=== PATIENT | female | born 1960 | race Caucasian/White ===

== ENCOUNTER 2024-04-01 09:56 | Observation (INO) ==
--- NOTE | 2024-04-01 10:03 | EKG ---
Test Reason : UNABLE TO MOVE EXTREMITIES Blood Pressure : */* mmHG Vent. Rate : 86 BPM Atrial Rate : 86 BPM P-R Int : 168 ms QRS Dur : 86 ms QT Int : 392 ms P-R-T Axes : 63 11 49 degrees QTc Int : 469 ms Sinus rhythm with premature supraventricular complexes Nonspecific ST abnormality Abnormal ECG No previous ECGs available Confirmed by Kojo Cope MD ([id number]) on 04/01/2024 10:26:03 AM Referred By: Confirmed By: Kojo Cope MD
[2024-04-01] MEDS: ASPIRIN 81 MG CHEWTAB PO STA (10:10)
[2024-04-01] MEDS: NS 1,000 ML IV 1,000 ML IV SCH (10:10)
[2024-04-01 10:15] LABS: BASOPHILS % (AUTO) 0.5 % (0.2-1.0); EOSINOPHILS # (AUTO) 0.1 x10^3/uL (0.0-0.2); EOSINOPHILS % (AUTO) 1.3 % (0.9-2.9); HEMATOCRIT 44.7 % (36.0-47.0); LYMPHOCYTES # (AUTO) 2.3 X10^3/uL (1.3-2.9); LYMPHOCYTES % (AUTO) 28.9 % (21.0-51.0); MEAN CORPUSCULAR HEMOGLOBIN 30.2 pg (27.0-34.0); MEAN CORPUSCULAR HGB CONC 33.6 g/dL (33.0-35.0); MEAN CORPUSCULAR VOLUME 89.8 fL (80.0-100.0); MEAN PLATELET VOLUME 8.7 fL (7.4-11.0); MONOCYTES # (AUTO) 0.4 x10^3/uL (0.3-0.8); MONOCYTES % (AUTO) 5.7 % (0.0-13.0); NEUTROPHILS % (AUTO) 63.6 % (42.0-75.0); PLATELET COUNT 203 X10^3/uL (150.0-450.0); RED BLOOD COUNT 4.98 X10^6/uL (3.5-5.4); RED CELL DISTRIBUTION WIDTH 13.3 % (11.6-16.5); WHITE BLOOD COUNT 7.8 X10^3/uL (3.6-10.0)
--- NOTE | 2024-04-01 10:17 | DR.WEAKNES ---
HPI Time Seen Time Seen by Provider: 04/01/24 10:16 Complaints Chief Complaint Doctors Comments: Patient was riding with her from an appointment in [facility] which she near the abnormal area she began to get some right arm pain and according to her she just went limp could not m ove any of her extremities and was not as conversant. When she got to the ER she was unable to move her extremities.responding to voice commands. She was able to say that she was having some right arm pain when I did my initial evaluation. She does have a history of TIAs so we started her on the cardiac and stroke protocol. Timing Symptom Onset: Known Context Stroke Symptoms: Acute confusion PMH Travel Risk Coronavirus risk:travel/contact w/high risk person: No Has patient experienced Coronavirus symptoms: No ROS Review of Systems Constitutional: Weakness and Other Eyes: No Symptoms Reported ENTM: No Symptoms Reported Respiratoy: No Symptoms Reported Cardiovascular: No Symptoms Reported Gastrointestinal/Abdominal: No Symptoms Reported Genitourinary: No Symptoms Reported Neurological: Paresthesia, Weakness and Other (Obtunded) Musculoskeletal: Muscle Stiffness Integumentary: No Symptoms Reported Hematologic/Lymphatic: No Symptoms Reported Endocrine: No Symptoms Reported Psychiatric: Other (conversion type reaction) PE Vital Signs Vitals: Vital Signs Temperature 96.1 F Pulse Rate 61 Pulse Rate 61 Pulse Rate 60 Pulse Rate 60 Pulse Rate 61 Pulse Rate 61 Pulse Rate 62 Pulse Rate 62 Pulse Rate 64 Pulse Rate 66 Pulse Rate 69 Pulse Rate 63 Pulse Rate 62 Pulse Rate 66 Pulse Rate 69 Pulse Rate 71 Pulse Rate 69 Pulse Rate 66 Pulse Rate 67 Pulse Rate 65 Pulse Rate 65 Pulse Rate 79 Pulse Rate 75 Pulse Rate 76 Pulse Rate 70 Pulse Rate 73 Pulse Rate 78 Pulse Rate 77 Pulse Rate 81 Pulse Rate 88 Respiratory Rate 20 Respiratory Rate 21 Respiratory Rate 17 Respiratory Rate 17 Respiratory Rate 20 Respiratory Rate 18 Respiratory Rate 15 Respiratory Rate 17 Respiratory Rate 20 Respiratory Rate 14 Respiratory Rate 19 Respiratory Rate 19 Respiratory Rate 14 Respiratory Rate 13 Respiratory Rate 15 Respiratory Rate 17 Respiratory Rate 22 Respiratory Rate 17 Respiratory Rate 13 Respiratory Rate 19 Respiratory Rate 18 Respiratory Rate 17 Respiratory Rate 24 Respiratory Rate 13 Respiratory Rate 17 Respiratory Rate 20 Respiratory Rate 16 Respiratory Rate 18 Blood Pressure 143/56 Blood Pressure 143/56 Blood Pressure 143/56 Blood Pressure 158/69 Blood Pressure 167/73 Blood Pressure 175/77 Blood Pressure 162/73 Blood Pressure 162/73 Blood Pressure 162/73 Blood Pressure 141/67 Blood Pressure 153/69 Blood Pressure 174/78 Blood Pressure 177/79 Blood Pressure 184/91 O2 Sat by Pulse Oximetry 100 O2 Sat by Pulse Oximetry 100 O2 Sat by Pulse Oximetry 100 O2 Sat by Pulse Oximetry 100 O2 Sat by Pulse Oximetry 100 O2 Sat by Pulse Oximetry 100 O2 Sat by Pulse Oximetry 100 O2 Sat by Pulse Oximetry 100 O2 Sat by Pulse Oximetry 100 O2 Sat by Pulse Oximetry 100 O2 Sat by Pulse Oximetry 100 O2 Sat by Pulse Oximetry 98 O2 Sat by Pulse Oximetry 99 O2 Sat by Pulse Oximetry 99 O2 Sat by Pulse Oximetry 100 O2 Sat by Pulse Oximetry 100 O2 Sat by Pulse Oximetry 99 O2 Sat by Pulse Oximetry 99 O2 Sat by Pulse Oximetry 100 O2 Sat by Pulse Oximetry 100 O2 Sat by Pulse Oximetry 100 O2 Sat by Pulse Oximetry 100 O2 Sat by Pulse Oximetry 100 General Limitations: Altered Mental Status and Physical Limitation (could not move extremities) Head Head Exam: Normal Inspection, Atraumatic and Normocephalic Eyes Eye exam: Normal Appearance, PERRL and EOMI Eyelids: Normal Inspection: Bilateral Pupils: Regular, Round: Bilateral ENT ENT Exam: Normal Exam Mouth Exam: Normal Inspection Throat Exam: Normal Inspection Chest Chest Inspection: Normal Inspection and Symmetric Chest Wall Rise Respiratory Respiratory Exam: Normal Lung Sounds Bilat Respiratory Exam: Bilateral: Clear to Auscultation Cardiovascular Cardiovascular Exam: Regular Rate Abdominal Exam Abdominal Exam: Normal Inspection, Normal Bowel Sounds and Soft Extremities Extremities Exam: Normal Inspection Back Back Exam: Normal Inspection Neurologic Neurological Exam: Other (obtunded) Patient Oriented To: Person Speech: Expressive Aphasia Cranial Nerve Exam: EOM Function (II, III, IV, ): Normal Motor Strength - LUE: 2/5 Motor Strength - RUE: 2/5 Motor Strength - LLE: 2/5 Motor Strength - RLE: 2/5 Psychiatric Psychiatric Exam: Depressed and Flat Affect Skin Skin Exam: Warm, Dry and Intact MDM Differential Diagnosis Differential Diagnosis: CVA, Electrolyte Disorder, TIA and Other (conversion reaction) COURSE Treatment Treatment: Patient had a stroke alert protocol instituted and we were able to speak to a the neurologist and he stated that the ED CT of the scan of the brain look normal the patient was able to respond by moving out extremities slightly when he asked him to do things he thought this may be some type of conversion reaction or some type of hypertensive encephalopathy he suggested we do an MRI of the brain and MRA of the brain could not have any contrast related IV or evaluation of the brain. She did have an MRI of the brain that showed no intra cranial abnormality and she had an MRA that showed little narrowing of the right APOLONIA and shows some other abnormality that may represent some congenital deformity. We did get the patient excepted for an observation and Dr. Coyle was the doctor that excepted this patient for observation. This patient has a potassium of 3.3 so we are going to put some potassium in a bag of 10 mill equivalents in a bag and run at 100 cc an hour while she is in the hospital. ROR Labs Reviewed Laboratory Results Reviewed?: Yes 04/01/24 10:05 04/01/24 10:05 Laboratory: WBC 7.8 X10^3/uL (3.6-10.0) 04/01/24 10:05 RBC 4.98 X10^6/uL (3.5-5.4) 04/01/24 10:05 Hgb 15.0 g/dL (12.0-16.0) 04/01/24 10:05 Hct 44.7 % (36.0-47.0) 04/01/24 10:05 MCV 89.8 fL (80.0-100.0) 04/01/24 10:05 MCH 30.2 pg (27.0-34.0) 04/01/24 10:05 MCHC 33.6 g/dL (33.0-35.0) 04/01/24 10:05 RDW 13.3 % (11.6-16.5) 04/01/24 10:05 Plt Count 203 X10^3/uL (150.0-450.0) 04/01/24 10:05 MPV 8.7 fL (7.4-11.0) 04/01/24 10:05 Neut % (Auto) 63.6 % (42.0-75.0) 04/01/24 10:05 Lymph % (Auto) 28.9 % (21.0-51.0) 04/01/24 10:05 [place] % (Auto) 5.7 % (0.0-13.0) 04/01/24 10:05 Eos % (Auto) 1.3 % (0.9-2.9) 04/01/24 10:05 Baso % (Auto) 0.5 % (0.2-1.0) 04/01/24 10:05 Neut # (Auto) 5.0 x10^3/uL (2.2-4.8) H 04/01/24 10:05 Lymph # (Auto) 2.3 X10^3/uL (1.3-2.9) 04/01/24 10:05 [place] # (Auto) 0.4 x10^3/uL (0.3-0.8) 04/01/24 10:05 Eos # (Auto) 0.1 x10^3/uL (0.0-0.2) 04/01/24 10:05 Baso # (Auto) 0.0 X10^3/uL (0.0-0.1) 04/01/24 10:05 Absolute Nucleated RBC 0.0 /100WBC 04/01/24 10:05 PT 14.3 SECONDS (11.8-14.3) 04/01/24 10:05 INR Target Range - 04/01/24 10:05 INR 1.13 (0.8-1.3) 04/01/24 10:05 APTT 27.6 SECONDS (22.9-36.5) 04/01/24 10:05 PTT Comment - 04/01/24 10:05 Fibrinogen 346 mg/dL (239-489) 04/01/24 10:05 Sodium 140 mmol/L (136-145) 04/01/24 10:05 Corrected Sodium 141 mmol/L (136-145) 04/01/24 10:05 Potassium 3.3 mmol/L (3.5-5.1) L 04/01/24 10:05 Chloride 101 mmol/L (98-107) 04/01/24 10:05 Carbon Dioxide 29.2 mmol/L (21-32) 04/01/24 10:05 BUN 17 mg/dL (7-18) 04/01/24 10:05 Creatinine 0.90 mg/dL (0.55-1.02) 04/01/24 10:05 Est GFR (MDRD) Af Amer > 60 (>60) 04/01/24 10:05 Est GFR (MDRD) Non-Af > 60 (>60) 04/01/24 10:05 Glucose 130 mg/dL (65-99) H 04/01/24 10:05 Calcium 9.5 mg/dL (8.5-10.1) 04/01/24 10:05 Corrected Calcium TNP 04/01/24 10:05 Total Bilirubin 0.50 mg/dL (0.2-1.0) 04/01/24 10:05 AST 26 Units/L (15-37) 04/01/24 10:05 ALT 41 Units/L (12-78) 04/01/24 10:05 Alkaline Phosphatase 112 Units/L (46-116) 04/01/24 10:05 Creatine Kinase 322 Units/L (26-192) H 04/01/24 10:05 Troponin I High Sens 5.4 ng/L (4.0-60.0) 04/01/24 10:05 B-Natriuretic Peptide 30.2 pg/mL (0-79) 04/01/24 10:05 Total Protein 8.5 g/dL (6.4-8.2) H 04/01/24 10:05 Albumin 4.5 g/dL (3.4-5.0) 04/01/24 10:05 Globulin 4.0 g/dL (2.5-4.5) 04/01/24 10:05 Albumin/Globulin Ratio 1.1 Ratio (1.1-2.1) 04/01/24 10:05 Triglycerides 83 mg/dL (0-150) 04/01/24 10:05 Cholesterol 186 mg/dL (0-200) 04/01/24 10:05 LDL Cholesterol, Calc 110 mg/dL (0-100) H 04/01/24 10:05 HDL Cholesterol 59 mg/dL (40-60) 04/01/24 10:05 Cholesterol/HDL Ratio 3.2 (0.0-5.0) 04/01/24 10:05 Specimen Type Clean catch urine 04/01/24 12:58 Urine Color Yellow (YELLOW) 04/01/24 12:58 Urine Appearance Clear (CLEAR) 04/01/24 12:58 Urine pH 6.5 (5.0 - 8.0) 04/01/24 12:58 Ur Specific [place] 1.010 (1.000-1.030) 04/01/24 12:58 Urine Protein 2+ (NEGATIVE) 04/01/24 12:58 Urine Glucose (UA) Negative (NEGATIVE) 04/01/24 12:58 Urine Ketones Negative (NEGATIVE) 04/01/24 12:58 Urine Blood Negative (NEGATIVE) 04/01/24 12:58 Urine Nitrite Negative (NEGATIVE) 04/01/24 12:58 Urine Bilirubin Negative (NEGATIVE) 04/01/24 12:58 Urine Urobilinogen Normal (NORMAL) 04/01/24 12:58 Ur Leukocyte Esterase Negative (NEGATIVE) 04/01/24 12:58 Urine RBC None seen /HPF (0-3) 04/01/24 12:58 Urine WBC 0-2 /HPF (0-5) 04/01/24 12:58 Ur Squamous Epith Cells Few /HPF (NEGATIVE) 04/01/24 12:58 Urine Bacteria Negative /HPF (NEGATIVE) 04/01/24 12:58 Ur Culture Indicated? 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 Pt educated and given instructions on all concerns. Plan of Treatment: Continue with present treatment and follow up plan. Pt is to keep follow up appointment as instructed and take medications as ordered. Orders to Discharge Patient Discharge Orders: Transfer (Routine); Ordered 04/01/24 Ordered By: Bashir Hooker Follow ups/Referrals Follow ups/Referrals: Mario Tijerina [Primary Care Provider] - 3 days Instructions Stand Alone Forms: Post Hospital Follow Up Care
[2024-04-01 10:18] VITALS: BMI 35.6
[2024-04-01 10:23] LABS: INR 1.13 (0.8-1.3)
--- NOTE | 2024-04-01 10:30 | CT ---
EXAMINATION: BRAIN W/O CON HISTORY: UNABLE TO MOVE EXTREMEMTIES; COMPARISON: None. TECHNIQUE: Contiguous noncontrast axial CT images of the brain. Images are reviewed in the axial imaging plane with reformatted sagittal and coronal images.The above CT scan was done with automated exposure contr ol and the mA and kV was adjusted to obtain quality images according to patient size. FINDINGS: No evidence of acute intracranial hemorrhage, mass effect, or midline shift. Ventricles normal size and shape. Calvarium appears intact. IMPRESSION: No acute intracranial process seen. Consider follow-up MRI of the brain if this is of continued clin ical concern. THIS IS AN ELECTRONICALLY VERIFIED FINAL REPORT 04/01/2024 10:26 AM - Electronically signed by Naila Lares MD
[2024-04-01 10:36] LABS: ALANINE AMINOTRANSFERASE 41 Units/L (12-78); ALBUMIN 4.5 g/dL (3.4-5.0); ALKALINE PHOSPHATASE 112 Units/L (46-116); ASPARTATE AMINO TRANSFERASE 26 Units/L (15-37); BLOOD UREA NITROGEN 17 mg/dL (7-18); CALCIUM 9.5 mg/dL (8.5-10.1); CARBON DIOXIDE 29.2 mmol/L (21-32); CHLORIDE 101 mmol/L (98-107); CHOL/HDL RATIO 3.2 (0.0-5.0); CHOLESTEROL 186 mg/dL (0-200); COR NA(FOR HYPERGLY) 141 mmol/L (136-145); CREATINE KINASE 322 Units/L (26-192); GLUCOSE 130 mg/dL (65-99); HDL CHOLESTEROL 59 mg/dL (40-60); POTASSIUM 3.3 mmol/L (3.5-5.1); SODIUM 140 mmol/L (136-145); TOTAL PROTEIN 8.5 g/dL (6.4-8.2); TRIGLYCERIDES 83 mg/dL (0-150); eGFR NON BLACK RACES > 60 (>60)
--- NOTE | 2024-04-01 10:50 | RAD ---
EXAM: CHEST, 1 VIEW HISTORY: UNABLE TO MOVE EXTREMEMTIES; COMPARISON: No relevant prior studies were available for comparison at the time of interpretation. TECHNIQUE: CHEST, 1 VIEW FINDINGS: Chest: Lines and tubes: Cardiac leads overlie the chest. Mediastinum: Borderline cardiomegaly. Pulmonary vessels: There is pulmonary vascular congestion. Lung bell: No suspicious airspace opacity. Pleura: No effusion. No pneumothorax. Bones and soft tissues: No acute osseous or soft tissue abnormality. IMPRESSION: 1. Findings suggest heart failure THIS IS AN ELECTRONICALLY VERIFIED FINAL REPORT 04/01/2024 10:46 AM - Electronically signed by Ney Pino MD
--- NOTE | 2024-04-01 12:48 | MRI ---
EXAM: BRAIN W/O CON HISTORY: POSSIBLE STROKE/ FAST BRAIN RAN DUE TO PATIENT HAVING CLAUSTROPHOBIA/ AND IN PAIN; COMPARISON: None. TECHNIQUE: Multiplaner, multisequence MRI of the head is performed without IV contrast. FINDINGS: There is no evidence of restricted diffusion to indicate a recent infarction. No suprasellar asymmetry is identified. Cerebellar tonsils are normal in position. Normal signal an d morphology of the corpus callosum. The major flow voids of the anterior and posterior intracranial circulation are adequately maintained on the T2 weighted series. Internal auditory canal landmarks are symmetric. Sinuses are predominan tly clear aside from mild ethmoidal mucosal thickening. The mastoid air cells are predominantly xenia r. There is no intracranial hemorrhage or extra-axial fluid collection. The ventricular size is nor mal. No age advanced degenerative white matter signal changes are demonstrated. No susceptibility a rtifact or hemosiderin deposition identified. Cortical brain volume is age-appropriate. IMPRESSION: No acute intracranial abnormalities. Specifically, no evidence of restricted diffusion to indicate a recent infarction. THIS IS AN ELECTRONICALLY VERIFIED FINAL REPORT 04/01/2024 12:45 PM - Electronically signed by Gamaliel Wong MD
[2024-04-01 13:08] LABS: BILIRUBIN,URINE NEGATIVE (NEGATIVE); BLOOD/HEMOGLOBIN,URINE NEGATIVE (NEGATIVE); GLUCOSE, URINE NEGATIVE (NEGATIVE); KETONES,URINE NEGATIVE (NEGATIVE); LEUKOCYTE ESTERASE ,URINE NEGATIVE (NEGATIVE); NITRITES,URINE NEGATIVE (NEGATIVE); PH,URINE 6.5 (5.0 - 8.0); PROTEIN,URINE 2+ (NEGATIVE); UROBILINOGEN,URINE NORMAL (NORMAL)
--- NOTE | 2024-04-01 13:20 | MRI ---
EXAM: MRA HEAD W/O CON HISTORY: AMS, hypertensive encephalopathy; COMPARISON: None. TECHNIQUE: 3D [id number] MRA of the head with 2D slab reconstruction FINDINGS: With respect to the posterior circulation, the left vertebral artery appears dominant and there is li mited flow related signal identified in the expected distribution of the right vertebral artery. Dmitri w related signal is maintained through the basilar artery terminus. Bilateral anterior inferior cere bellar arteries, superior cerebellar arteries and posterior cerebral arteries maintain normal overall flow related signal. There is a hypoplastic right P1 segment. Robust flow related signal is mainta ined through the bilateral posterior communicating arteries and primarily supplies the bilateral post erior cerebral artery segments via persistent type [employer] origin. Normal flow related signal is m aintained through the ICA terminus. Bilateral middle cerebral artery branches and anterior cerebral artery branches are patent; the proximal right A1 segment reveals focal narrowing just beyond the clinton gin. Otherwise, there is no loss of signal to indicate an occluded segments or flow-limiting high-gr carlos enrique stenosis. IMPRESSION: No large vessel occlusion identified with respect to the anterior and posterior intracranial circulat ion Short-segment narrowing of the proximal right A1 segment (focal high-grade stenosis considered) Dominant left vertebral artery and persistent type [employer] origins with respect to the posterior ci rculation. 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 THIS IS AN ELECTRONICALLY VERIFIED FINAL REPORT 04/01/2024 1:16 PM - Electronically signed by Gamaliel Wong MD
[2024-04-01 13:40] LABS: APPEARANCE,URINE CLEAR (CLEAR); COLOR,URINE YELLOW (YELLOW); RBC,URINE NONE SEEN /HPF (0-3)
[2024-04-01 13:41] LABS: BACTERIA,URINE NEGATIVE /HPF (NEGATIVE); SQUAMOUS EPITHELIAL CELL,UR FEW /HPF (NEGATIVE)
[2024-04-01] MEDS: NS 1,000 ML IV 1,000 ML ONE (17:54)
[2024-04-01] MEDS: ASPIRIN 81 MG CHEWTAB ONE (17:55)
[2024-04-01] MEDS: OMNIPAQUE 350 mg/mL 100 mL BTL 100 ML ONE (17:55)
[2024-04-01] MEDS: NS 1,000 ML IV 1,000 ML with POTASSIUM CHLORIDE INJ 10 MEQ VIAL 10 MEQ IV SCH (18:05)
[2024-04-01] MEDS ORDERED: PROVENTIL NEB TX 0.083% 2.5MG/ 3ML NEB PRN (18:32)
[2024-04-01] MEDS: NS + KCL 20 MEQ/L 1,000 ML IV SCH (19:04)
[2024-04-01] MEDS ORDERED: NS 1,000 ML IV 1,000 ML IV ONE (20:00)
[2024-04-01] MEDS ORDERED: K-RIDER 10 MEQ/100 ML WATER 10 MEQ/100 ML BAG IV ONE (20:00)
[2024-04-01] MEDS: COZAAR PO SCH (20:31)
[2024-04-02 05:08] LABS: EOSINOPHILS # (AUTO) 0.2 x10^3/uL (0.0-0.2); HEMOGLOBIN 14.7 g/dL (12.0-16.0); MEAN CORPUSCULAR HEMOGLOBIN 30.2 pg (27.0-34.0); MEAN CORPUSCULAR HGB CONC 33.6 g/dL (33.0-35.0); RED CELL DISTRIBUTION WIDTH 13.4 % (11.6-16.5)
[2024-04-02 05:11] LABS: BASOPHILS % (AUTO) 0.6 % (0.2-1.0); EOSINOPHILS % (AUTO) 2.3 % (0.9-2.9); HEMATOCRIT 43.9 % (36.0-47.0); LYMPHOCYTES # (AUTO) 2.6 X10^3/uL (1.3-2.9); LYMPHOCYTES % (AUTO) 31.6 % (21.0-51.0); MEAN CORPUSCULAR VOLUME 89.9 fL (80.0-100.0); MEAN PLATELET VOLUME 9.6 fL (7.4-11.0); MONOCYTES # (AUTO) 0.6 x10^3/uL (0.3-0.8); MONOCYTES % (AUTO) 6.9 % (0.0-13.0); NEUTROPHILS # (AUTO) 4.7 x10^3/uL (2.2-4.8); NEUTROPHILS % (AUTO) 58.6 % (42.0-75.0); PLATELET COUNT 171 X10^3/uL (150.0-450.0); RED BLOOD COUNT 4.88 X10^6/uL (3.5-5.4); WHITE BLOOD COUNT 8.1 X10^3/uL (3.6-10.0)
[2024-04-02 05:15] LABS: ALANINE AMINOTRANSFERASE 36 Units/L (12-78); ALKALINE PHOSPHATASE 105 Units/L (46-116); ASPARTATE AMINO TRANSFERASE 24 Units/L (15-37); BLOOD UREA NITROGEN 15 mg/dL (7-18); CALCIUM 8.9 mg/dL (8.5-10.1); CARBON DIOXIDE 27.4 mmol/L (21-32); CHLORIDE 104 mmol/L (98-107); CREATININE 0.84 mg/dL (0.55-1.02); GLUCOSE 97 mg/dL (65-99); MAGNESIUM 1.8 mg/dL (2.0-2.9); POTASSIUM 3.9 mmol/L (3.5-5.1); SODIUM 143 mmol/L (136-145); eGFR NON BLACK RACES > 60 (>60)
[2024-04-02 05:25] LABS: PLATELET MORPHOLOGY COMMENT NORMAL (NORMAL)
[2024-04-02] MEDS ORDERED: CONSULT PHARMACY - POTASSIUM & MAGNESIUM XX SCH (06:00)
[2024-04-02 08:46] VITALS: BP 163/70; PULSE 63; RESP 20; TEMP 97.9; O2SAT 100
[2024-04-02] MEDS ORDERED: NS 1,000 ML IV 1,000 ML with POTASSIUM CHLORIDE INJ 10 MEQ VIAL 10 MEQ IV SCH (09:00)
[2024-04-02] MEDS: ASPIRIN PO SCH (09:13)
[2024-04-02] MEDS: MAG-OX TAB PO SCH (09:13)
[2024-04-02] MEDS: HYDROCHLOROTHIAZIDE 25 MG TAB PO SCH (09:13)
[2024-04-04] MEDS ORDERED: VITAMIN D (1.25MG) PO SCH (09:00)
--- NOTE | 2024-04-06 16:51 | DR.SSS ---
SHORT STAY SUMMARY Admission Date Date of Admission: 04/01/24 Discharge Date Discharge Date: 04/02/24 Admission Diagnoses Admission Diagnoses: Right arm weakness Rule out CVA Hypertension Recurrent TIAs Discharge Diagnoses Discharge Diagnoses: TIA Hypertension Hyperlipidemia Chief Complaint Chief Complaint: Right arm weakness, change in speech History of Present Illness History of Present Illness: Ms. Cagle is a 64-year-old female with a past medical history of hypertension, hyperlipidemia and TIA presented with right arm weakness, changes in speech and unable to speak. This happened in the morning when she was going to her 's appointment. She was not able to move her extremities and respond to voice commands. She was brought to the ER for further evaluation. She was started on cardiac and stroke protocol. CT brain was negative. Labs showed hypokalemia and hypomagnesemia, cardiac enzymes were negative. Teleneurology was consulted. MRI/MRA was recommended. Patient was admitted for further evaluation. Past Medical History Past Medical History: COPD, GERD and Hypertension Past Surgical History Surgical History: Cholecystectomy and Other Allergies Allergies Allergy/AdvReac Type Severity Reaction Status Date / Time Fish Containing Products Allergy Verified 04/01/24 10:11 iodine Allergy Verified 04/01/24 10:11 latex Allergy Verified 04/01/24 10:11 shellfish derived Allergy Verified 04/01/24 10:11 naproxen AdvReac Mild NAUSEA/VOMI Verified 04/01/24 18:15 TING ondansetron [From Zofran] AdvReac Mild NAUSEA/VOMI Verified 04/01/24 18:15 TING Medications Home Medications: Fish Containing Products Allergy (Verified 04/01/24 10:11) iodine Allergy (Verified 04/01/24 10:11) latex Allergy (Verified 04/01/24 10:11) shellfish derived Allergy (Verified 04/01/24 10:11) naproxen Adverse Reaction (Mild, Verified 04/01/24 18:15) NAUSEA/VOMITING ondansetron [From Zofran] Adverse Reaction (Mild, Verified 04/01/24 18:15) NAUSEA/VOMITING CONTINUE taking the following medications albuterol sulfate 90 mcg/actuation aerosol inhaler 1 puff inhalation Q4H PRN 04/01/24 [History] amlodipine 5 mg tablet 5 mg PO QPM 04/01/24 [History] ergocalciferol (vitamin D2) 1,250 mcg (50,000 unit) capsule 1,250 mcg PO QWEEK 04/01/24 [History] hydrochlorothiazide 25 mg tablet 25 mg PO QAM 04/01/24 [History] losartan 50 mg tablet 50 mg PO BID 04/01/24 [History] New Prescriptions atorvastatin 40 mg tablet 40 mg PO QDAY 30 days #30 tabs 04/02/24 [Rx] Social History Does patient currently use any type of tobacco product: No Have you used tobacco products in the last 12 months: No Type of Tobacco Use: None Does any household member use tobacco: No Alcohol Use: None Drug Use: None Review of Systems Constitutional: No Symptoms Reported Eyes: No Symptoms Reported ENT: No Symptoms Reported Respiratory: No Symptoms Reported Cardiovascular: No Symptoms Reported Gastrointestinal: No Symptoms Reported Genitourinary: No Symptoms Reported Musculoskeletal: Arm Pain Skin: No Symptoms Reported Neurological: Weakness and Change in Speech Physical Exam Vital Signs: Last Vital Signs Temp 97.9 F 04/02/24 08:00 Pulse 63 04/02/24 08:00 Resp 20 04/02/24 08:00 BP 163/70 04/02/24 08:00 Pulse Ox 100 04/02/24 08:00 O2 Del Method Nasal Cannula 04/01/24 10:50 O2 Flow Rate 2 04/01/24 10:50 Oriented: Normal Eyes: Normal Nose: Normal Throat: Normal Respiratory: Clear Throughout Cardiovascular: Normal Auscultation: Bowel Sounds: Normal Palpation: Normal Tenderness: Normal Skin: Normal Musculoskeletal: Normal Psychiatric: Normal Mood Description: Calm Affect: Normal Speech Pattern: Clear and Appropriate Labs Labs: Laboratory Last Values WBC 8.1 X10^3/uL (3.6-10.0) 04/02/24 04:16 RBC 4.88 X10^6/uL (3.5-5.4) 04/02/24 04:16 Hgb 14.7 g/dL (12.0-16.0) 04/02/24 04:16 Hct 43.9 % (36.0-47.0) 04/02/24 04:16 MCV 89.9 fL (80.0-100.0) 04/02/24 04:16 MCH 30.2 pg (27.0-34.0) 04/02/24 04:16 MCHC 33.6 g/dL (33.0-35.0) 04/02/24 04:16 RDW 13.4 % (11.6-16.5) 04/02/24 04:16 Plt Count 171 X10^3/uL (150.0-450.0) 04/02/24 04:16 Plt Count Comment Adequate (ADEQUATE) 04/02/24 04:16 MPV 9.6 fL (7.4-11.0) 04/02/24 04:16 Neut % (Auto) 58.6 % (42.0-75.0) 04/02/24 04:16 Lymph % (Auto) 31.6 % (21.0-51.0) 04/02/24 04:16 Jay % (Auto) 6.9 % (0.0-13.0) 04/02/24 04:16 Eos % (Auto) 2.3 % (0.9-2.9) 04/02/24 04:16 Baso % (Auto) 0.6 % (0.2-1.0) 04/02/24 04:16 Neut # (Auto) 4.7 x10^3/uL (2.2-4.8) 04/02/24 04:16 Lymph # (Auto) 2.6 X10^3/uL (1.3-2.9) 04/02/24 04:16 Jay # (Auto) 0.6 x10^3/uL (0.3-0.8) 04/02/24 04:16 Eos # (Auto) 0.2 x10^3/uL (0.0-0.2) 04/02/24 04:16 Baso # (Auto) 0.0 X10^3/uL (0.0-0.1) 04/02/24 04:16 Absolute Nucleated RBC 0.1 /100WBC 04/02/24 04:16 Plt Morphology Comment Normal (NORMAL) 04/02/24 04:16 RBC Morphology Normal (NORMAL) 04/02/24 04:16 PT 14.3 SECONDS (11.8-14.3) 04/01/24 10:05 INR Target Range - 04/01/24 10:05 INR 1.13 (0.8-1.3) 04/01/24 10:05 APTT 27.6 SECONDS (22.9-36.5) 04/01/24 10:05 PTT Comment - 04/01/24 10:05 Fibrinogen 346 mg/dL (239-489) 04/01/24 10:05 Sodium 143 mmol/L (136-145) 04/02/24 04:16 Corrected Sodium TNP 04/02/24 04:16 Potassium 3.9 mmol/L (3.5-5.1) 04/02/24 04:16 Chloride 104 mmol/L (98-107) 04/02/24 04:16 Carbon Dioxide 27.4 mmol/L (21-32) 04/02/24 04:16 BUN 15 mg/dL (7-18) 04/02/24 04:16 Creatinine 0.84 mg/dL (0.55-1.02) 04/02/24 04:16 Est GFR (MDRD) Af Amer > 60 (>60) 04/02/24 04:16 Est GFR (MDRD) Non-Af > 60 (>60) 04/02/24 04:16 Glucose 97 mg/dL (65-99) 04/02/24 04:16 Calcium 8.9 mg/dL (8.5-10.1) 04/02/24 04:16 Corrected Calcium TNP 04/02/24 04:16 Magnesium 1.8 mg/dL (2.0-2.9) L 04/02/24 04:16 Total Bilirubin 0.60 mg/dL (0.2-1.0) 04/02/24 04:16 AST 24 Units/L (15-37) 04/02/24 04:16 ALT 36 Units/L (12-78) 04/02/24 04:16 Alkaline Phosphatase 105 Units/L (46-116) 04/02/24 04:16 Creatine Kinase 322 Units/L (26-192) H 04/01/24 10:05 Troponin I High Sens 5.4 ng/L (4.0-60.0) 04/01/24 10:05 B-Natriuretic Peptide 30.2 pg/mL (0-79) 04/01/24 10:05 Total Protein 8.0 g/dL (6.4-8.2) 04/02/24 04:16 Albumin 4.0 g/dL (3.4-5.0) 04/02/24 04:16 Globulin 4.0 g/dL (2.5-4.5) 04/02/24 04:16 Albumin/Globulin Ratio 1.0 Ratio (1.1-2.1) L 04/02/24 04:16 Triglycerides 83 mg/dL (0-150) 04/01/24 10:05 Cholesterol 186 mg/dL (0-200) 04/01/24 10:05 LDL Cholesterol, Calc 110 mg/dL (0-100) H 04/01/24 10:05 HDL Cholesterol 59 mg/dL (40-60) 04/01/24 10:05 Cholesterol/HDL Ratio 3.2 (0.0-5.0) 04/01/24 10:05 Specimen Type Clean catch urine 04/01/24 12:58 Urine Color Yellow (YELLOW) 04/01/24 12:58 Urine Appearance Clear (CLEAR) 04/01/24 12:58 Urine pH 6.5 (5.0 - 8.0) 04/01/24 12:58 Ur Specific [place] 1.010 (1.000-1.030) 04/01/24 12:58 Urine Protein 2+ (NEGATIVE) 04/01/24 12:58 Urine Glucose (UA) Negative (NEGATIVE) 04/01/24 12:58 Urine Ketones Negative (NEGATIVE) 04/01/24 12:58 Urine Blood Negative (NEGATIVE) 04/01/24 12:58 Urine Nitrite Negative (NEGATIVE) 04/01/24 12:58 Urine Bilirubin Negative (NEGATIVE) 04/01/24 12:58 Urine Urobilinogen Normal (NORMAL) 04/01/24 12:58 Ur Leukocyte Esterase Negative (NEGATIVE) 04/01/24 12:58 Urine RBC None seen /HPF (0-3) 04/01/24 12:58 Urine WBC 0-2 /HPF (0-5) 04/01/24 12:58 Ur Squamous Epith Cells Few /HPF (NEGATIVE) 04/01/24 12:58 Urine Bacteria Negative /HPF (NEGATIVE) 04/01/24 12:58 Ur Culture Indicated? No/not indicated 04/01/24 12:58 Hospital Course Hospital Course: Patient was admitted for strokelike symptoms. CT brain was negative. MRI did not show any acute stroke or bleed. MRA was also done which showed no large vessel occlusion. It did show short segment narrowing of the proximal right A1 segment. Patient's exam was benign the following day. All her symptoms had resolved. She did not have any weakness on the right side. Her speech was back to normal. She was able to ambulate. She was tolerating p.o. intake. She has a history of recurrent TIAs. She has not seen neurology. Patient was advised to follow-up with PCP and be referred to neurology. She was stable for discharge. She was noted to have elevated LDL, will be sent home on Lipitor. Discharge Medications Discharge Medications: Home Medication List albuterol sulfate 90 mcg/actuation aerosol inhaler 1 puff inhalation Q4H PRN 04/01/24 [History] amlodipine 5 mg tablet 5 mg PO QPM 04/01/24 [History] ergocalciferol (vitamin D2) 1,250 mcg (50,000 unit) capsule 1,250 mcg PO QWEEK 04/01/24 [History] hydrochlorothiazide 25 mg tablet 25 mg PO QAM 04/01/24 [History] losartan 50 mg tablet 50 mg PO BID 04/01/24 [History] atorvastatin 40 mg tablet 40 mg PO QDAY 30 days #30 tabs 04/02/24 [Rx] Prescriptions: Yohana Gerard Discharge Disposition Discharge Disposition: To home Discharge Plan Discharge Plan Patient Disposition: 01 HOME, SELF-CARE Condition: Stable Health Concerns: Post Hospitalization: new medications and changes needed to prevent readmission or further decline. Pt educated and given instructions on all concerns. Plan of Treatment: Continue with present treatment and follow up plan. Pt is to keep follow up appointment as instructed and take medications as ordered. Prescription drug monitoring program results: PDMP reviewed and no concerns identified Prescriptions: New atorvastatin 40 mg tablet 40 mg PO QDAY 30 Days Qty: 30 0RF Continued losartan 50 mg tablet 50 mg PO BID amlodipine 5 mg tablet 5 mg PO QPM hydrochlorothiazide 25 mg tablet 25 mg PO QAM ergocalciferol (vitamin D2) 1,250 mcg (50,000 unit) capsule 1,250 mcg PO QWEEK albuterol sulfate 90 mcg/actuation HFA aerosol inhaler 1 puff INHALATION Q4H PRN Orders to Discharge Patient Discharge Orders: Discharge (Routine); Ordered 04/02/24 Ordered By: Yohana Hollis Follow ups/Referrals Follow ups/Referrals: Mario Tijerina [Primary Care Provider] - 3 days Instructions Instructions: Transient Ischemic Attack, [id number], Atorvastatin tablets, High Cholesterol Activity Restrictions/Additional Instructions: follow up with PCP, needs referral for cardiology and neurology Stand Alone Forms: Excuse From Work or School, Post Hospital Follow Up Care
== END 2024-04-02 11:30 | disposition home or self-care (01) ==
LOC: ER 09:56 → MED/SURG 09:56
PROVIDERS: ADMIT Family Medicine; ATTEND Family Medicine
DX: R07.89 Other chest pain; Z86.73 Personal history of transient ischemic attack (TIA), and cerebral infarction without residual deficits; E87.6 Hypokalemia; E78.5 Hyperlipidemia, unspecified; K21.9 Gastro-esophageal reflux disease without esophagitis; I10 Essential (primary) hypertension; E83.42 Hypomagnesemia; R53.1 Weakness; G45.8 Other transient cerebral ischemic attacks and related syndromes; R94.31 Abnormal electrocardiogram [ECG] [EKG]; M79.601 Pain in right arm; R41.82 Altered mental status, unspecified; J44.9 Chronic obstructive pulmonary disease, unspecified